=== PATIENT | female | born 1965 | race Caucasian/White ===

== ENCOUNTER → 2023-05-18 11:33 | Outpatient (REF) | payer OTHER, SELFPAY | LOC: WDC 11:33 | PROVIDERS: ATTENDING PHYSICIAN Obstetrics & Gynecology Gynecology; FAMILY PHYSICIAN Nurse Practitioner Primary Care | DX: Z12.31 Encounter for screening mammogram for malignant neoplasm of breast (principal) | CPT/HCPCS: 77063; 77067 ==

== ENCOUNTER → 2024-02-15 06:38 | Outpatient (REF) | payer OTHER, SELFPAY ==
[2024-02-15 07:40] LABS: % Basophils 1.6 % (0-2); % Immature Granulocytes 0.3 % (0-0.5); % Monocytes 8.2 % (1.7-9.3); % Neutrophils 39.9 % (42.2-75.2); Absolute Basophils 0.1 10^3/uL (0-0.2); Absolute Eosinophils 0.1 10^3/uL (0-0.7); Absolute Lymphocytes 1.4 10^3/uL (1.2-3.4); Absolute Monocytes 0.3 10^3/uL (0.1-0.6); Absolute Neutrophils 1.2 10^3/uL (1.4-6.5); Hematocrit 39.1 % (37.0-47.0); Hemoglobin 13.1 g/dL (12.0-16.0); Mean Corp Hgb Conc. 33.5 g/dL (33.0-37.0); Mean Corpuscular Hgb 32.7 pg (27.0-31.0); Mean Corpuscular Volume 97.5 fL (81.0-99.0); Mean Platelet Volume 10.4 fL (7.4-10.4); Nucleated Red Blood Cells % 0 %; Platelet Count 184 10^3/uL (130-400); Red Blood Cell Count 4.01 10^6/uL (4.20-5.40); Red Cell Dist. Width 12.5 % (11.5-14.5)
[2024-02-15 08:42] LABS: Vitamin D, 25-OH*** 44.3 ng/mL (30-80)
[2024-02-15 08:55] LABS: TSH Reflex To Free T4 4.63 uIU/ml (0.47-4.68)
[2024-02-15 09:23] LABS: ALT (SGPT) 28 U/L (0-35); AST (SGOT) 36 U/L (14-36); Albumin 4.6 g/dl (3.5-5.0); Alkaline Phosphatase 44 U/L (38-126); Blood Urea Nitrogen 12 mg/dl (7-17); Calcium 9.7 mg/dl (8.4-10.2); Carbon Dioxide 27 mmol/L (22-30); Chloride 102 mmol/L (98-107); Glucose 86 mg/dl (70-99); HDL Cholesterol 93 mg/dl; LDL Cholesterol, Calculated 102 mg/dl; Potassium 4.5 mmol/L (3.5-5.1); Sodium 140 mmol/L (135-145); Total Bilirubin 0.5 mg/dl (0.2-1.3); Total Cholesterol 207 mg/dl (50-199); Total Protein 6.6 g/dl (6.3-8.2); Triglyceride 60 mg/dl (10-149); Very Low Density Lipoprotein 12 mg/dl (0-30); eGFR > 60.00
[2024-02-15 14:18] LABS: tTG IgA Antibody 2.6 EU/ml (0-19); tTG IgG Antibody 7.4 EU/ml (0-19)
[2024-02-15 23:44] LABS: IgA 56 mg/dl (70-400)
[2024-02-17 21:11] LABS: Endomysial IgA Antibody Titer <1:10 (<1:10)
== END ==
LOC: REG 06:38
PROVIDERS: ATTENDING PHYSICIAN Nurse Practitioner Primary Care
DX: Z00.00 Encounter for general adult medical examination without abnormal findings (principal); M80.00XA Age-related osteoporosis with current pathological fracture, unspecified site, initial encounter for fracture; E55.9 Vitamin D deficiency, unspecified; D72.819 Decreased white blood cell count, unspecified; R10.30 Lower abdominal pain, unspecified
CPT/HCPCS: 36415; 80053; 80061; 82306; 82784; 83516; 84443; 85025; 86231

== ENCOUNTER → 2024-02-16 13:06 | Outpatient (REF) | payer OTHER, SELFPAY | LOC: RCS 13:06 | PROVIDERS: ATTENDING PHYSICIAN Nurse Practitioner Primary Care | DX: R00.1 Bradycardia, unspecified (principal); R07.89 Other chest pain | CPT/HCPCS: 93005 ==

== ENCOUNTER → 2024-02-20 14:17 | Outpatient (REF) | payer OTHER, SELFPAY | LOC: HWRAD 14:17 | PROVIDERS: ATTENDING PHYSICIAN Nurse Practitioner Primary Care | DX: Z85.820 Personal history of malignant melanoma of skin (principal); R10.30 Lower abdominal pain, unspecified; R14.0 Abdominal distension (gaseous) | CPT/HCPCS: 74177; Q9967 ==

== ENCOUNTER → 2024-02-23 13:47 | Outpatient (REF) | payer OTHER, SELFPAY ==
[2024-02-23 14:41] LABS: Urine Albumin Negative (Neg - Trace); Urine Bilirubin Negative (Negative); Urine Character Clear (Clear); Urine Color Yellow; Urine Glucose Negative (Negative); Urine Ketone Negative (Negative); Urine Leukocyte Trace (Negative); Urine Nitrite Negative (Negative); Urine Occult Blood Negative (Negative); Urine Urobilinogen Negative (Neg - 1+)
[2024-02-23 15:18] LABS: Urine Red Blood Cell 0-2 /HPF (0-2); Urine White Cell 0-2 /HPF (0-5)
[2024-02-23 15:54] LABS: Urine Protein 11 mg/dl
[2024-02-23 17:14] LABS: Protein/creatinine Ratio 0.7
== END ==
LOC: REG 13:47
PROVIDERS: ATTENDING PHYSICIAN Nurse Practitioner Primary Care
DX: D80.2 Selective deficiency of immunoglobulin A [IgA] (principal)
CPT/HCPCS: 36415; 81003; 81015; 82570; 82784; 83521; 84155; 84156; 84165; 86334

== ENCOUNTER → 2024-02-29 12:29 | Outpatient (REF) | payer OTHER, SELFPAY | LOC: RCS 12:29 | PROVIDERS: ATTENDING PHYSICIAN Nurse Practitioner Primary Care | DX: I34.0 Nonrheumatic mitral (valve) insufficiency (principal); R00.1 Bradycardia, unspecified; R07.89 Other chest pain | CPT/HCPCS: 93017; 93320; 93325; 93350 ==

== ENCOUNTER → 2024-03-16 10:13 | Outpatient (REF) | payer OTHER, SELFPAY | LOC: RAD 10:13 | PROVIDERS: ATTENDING PHYSICIAN Nurse Practitioner Primary Care | DX: M80.00XA Age-related osteoporosis with current pathological fracture, unspecified site, initial encounter for fracture (principal) | CPT/HCPCS: 77080 ==

== ENCOUNTER → 2024-03-26 09:53 | Outpatient (REF) | payer OTHER, SELFPAY | LOC: RAD 09:53 | PROVIDERS: ATTENDING PHYSICIAN Nurse Practitioner Primary Care; REFERRING PHYSICIAN Obstetrics & Gynecology Gynecology | DX: R04.0 Epistaxis (principal) | CPT/HCPCS: 76830; 76856 ==

== ENCOUNTER 2024-05-30 14:31 | Emergency (ER) | payer OTHER, SELFPAY ==
[2024-05-30 14:41] VITALS: BP 128/85
--- NOTE | 2024-05-30 14:42 | ED.MUSCINJ ---
HPI-Injury
<Collin Dior PA-C - Last Filed: 05/30/24 14:42>
General
Chief Complaint: Musculo-Skeletal Complaint
Time Seen by Provider: 05/30/24 15:13
<Germain May DO - Last Filed: 05/30/24 15:28>
History of Present Illness-Injury
Initial Injury comments:
TIME OF INITIAL ENCOUNTER:
HPI: 58-year-old female presents with left ankle and foot pain starting today. She stood up to walk out of her foot was asleep and she twisted her foot and felt a crack. She notes pain to the lateral foot and ankle. She has been unable to walk
since then. X-rays left ankle and foot ordered from triage.
EXAM:
GENERAL: Well appearing in no distress
HEENT: Moist oral mucosa
NEUROLOGIC: Excellent strength all extremities, no obvious coordination deficits
PSYCHIATRIC: Appropriate mental status, normal insight and judgement
EXTREMITIES: There is no pain with passive rotation at the hip, there is no tenderness at the knee, there is some mild soft tissue swelling over the lateral malleolus of the left ankle and there is also soft tissue swelling over the lateral aspect
of the left hindfoot, there is no significant tenderness at the base of the fifth metatarsal, other metatarsals are nontender
SKIN: No rash, no lesions
NUMBER AND COMPLEXITY OF PROBLEMS ADDRESSED AT THE ENCOUNTER
� Chronic conditions affecting care: Asthma, basal cell carcinoma
� Acute Exacerbation and/or Progression of Chronic Illness: This is an acute
� Differential Diagnosis includes: Foot/ankle fracture/sprain
AMOUNT AND/OR COMPLEXITY OF DATA TO BE REVIEWED AND ANALYZED
� I performed an independent evaluation of and my interpretation is:
EKG:
CT:
X-rays: I reviewed x-rays personally and agree with radiologist interpretation there is a questionable abnormality at the base of the fifth metatarsal however this does not fit clinically
Laboratory Studies:
Other:
� Review of other/old records: I reviewed records, the patient had a stress echo in February 2024
� Clinical information was obtained by an independent historian: I spoke to at bedside
� Prescriptions/Medications Considered but not given:
� Further testing considered but not performed:
RISK OF COMPLICATIONS AND/OR MORBIDITY OR MORTALITY OF PATIENT MANAGEMENT
� Social determinants of health affecting care: Lives at home
� Discussion with other providers:
� Escalation of care including admission/observation vs risk of discharge considered: The patient has already taken NSAIDs earlier today, will place in a boot and try crutches as she still does not feel to be able to weight-bear.
Suspect more of a foot sprain over base of the fifth metatarsal fracture however toward the fracture is still a possibility. Regardless, we will put her in a boot. She is known to Dr. Law.
ANY OTHER UPDATES:
ED Provider Triage
<Collin Dior PA-C - Last Filed: 05/30/24 14:42>
-
Patient seen by provider in Triage?: Seen in Triage
Attestation: A medical screening examination has been initiated by a qualified medical provider. Based on the assessment performed at this time, it has been determined that an emergent medical condition may exist and the patient has been informed
that further medical evaluation and possible additional diagnostic testing may be needed.
HPI: 58-year-old female presents with left ankle and foot pain starting today. She stood up to walk out of her foot was asleep and she twisted her foot and felt a crack. She notes pain to the lateral foot and ankle. She has been unable to walk
since then. X-rays left ankle and foot ordered
GENERAL: Alert , in no apparent distress
EYE: No visual abnormalities.
NECK: Trachea midline
ENT: No visible abnormalities.
LUNGS: No acute respiratory distress
NEUROLOGICAL: Alert and oriented
SKIN: Skin intact. No visible changes.
MUSCULOSKELETAL: Moving extremities normally
PSYCH: Normal and appropriate interaction.
This is a medical evaluation conducted in person to initiate diagnostic evaluation and provide initial therapeutics. Please see further documentation by the treating clinician.
<Germain May DO - Last Filed: 05/30/24 15:28>
-
Attestation: A medical screening examination has been initiated by a qualified medical provider. Based on the assessment performed at this time, it has been determined that an emergent medical condition may exist and the patient has been informed
that further medical evaluation and possible additional diagnostic testing may be needed.
HPI: 58-year-old female presents with left ankle and foot pain starting today. She stood up to walk out of her foot was asleep and she twisted her foot and felt a crack. She notes pain to the lateral foot and ankle. She has been unable to walk
since then. X-rays left ankle and foot ordered
GENERAL: Alert , in no apparent distress
EYE: No visual abnormalities.
NECK: Trachea midline
ENT: No visible abnormalities.
LUNGS: No acute respiratory distress
NEUROLOGICAL: Alert and oriented
SKIN: Skin intact. No visible changes.
MUSCULOSKELETAL: Moving extremities normally
PSYCH: Normal and appropriate interaction.
This is a medical evaluation conducted in person to initiate diagnostic evaluation and provide initial therapeutics. Please see further documentation by the treating clinician.
Past History
<Collin Dior PA-C - Last Filed: 05/30/24 14:42>
Past History
ED Past Medical History: None
ED Past Surgical History: None
Social History
Tobacco: Non-smoker
Personal:
Living: with family
Phy Exam
<Germain May DO - Last Filed: 05/30/24 15:28>
Physical Exam
Physical Exam:
See HPI
Injury Course
<Collin Dior PA-C - Last Filed: 05/30/24 14:42>
Orders/Labs/Results
Orders:
Orders
05/30/24 14:40
CR Ankle - Left Min 3 Views Urgent
Comment:
Reason For Exam: pain
CR Foot - Left Min 3 Views Urgent
Comment:
Reason For Exam: pain
05/30/24 15:22
Crutches-Treatment ONCE
boot [Ortho Boot Left- Treatment] ONCE
Short or tall?: Short
<Germain May, DO - Last Filed: 05/30/24 15:28>
Orders/Labs/Results
Orders:
Orders
05/30/24 14:40
CR Ankle - Left Min 3 Views Urgent
Comment:
Reason For Exam: pain
CR Foot - Left Min 3 Views Urgent
Comment:
Reason For Exam: pain
05/30/24 15:22
Crutches-Treatment ONCE
boot [Ortho Boot Left- Treatment] ONCE
Short or tall?: Short
<Germain May, DO - Last Filed: 05/30/24 15:28>
*Critical Care Note
Total Time (30-74mins, 75-104mins- exclusive of procedures): Not Applicable
ED Attending Note
<Collin Dior PA-C - Last Filed: 05/30/24 14:42>
-
Portions of this chart may have been created with voice recognition software.� Occasional wrong word or��sound alike� substitutions may have occurred due to the inherent limitations of voice recognition software.
Discharge Plan
Departure
Patient Disposition: Home (Routine Discharge)
Date of Disposition: 05/30/24
Time of Disposition: 15:24
Patient with high blood pressure during this ER visit?: Yes
Discharge Problem:
Foot fracture, left
Instructions: Foot Fracture
Prescriptions:
No Action
calcium carbonate-vitamin D3 [Calcium 600 + D(3)] 1 EACH tablet
1 ea PO BID
ibuprofen [Advil Liqui-Gel] 200 MG capsule
400 mg PO Q6H PRN (Reason: pain)
Referrals:
Jerry Law MD [Active] - Follow up in 2-3 days
Activity Restrictions/Additional Instructions:
The radiologist does question a fracture at the base of the fifth metatarsal however you did not seem to have any significant pain at that location. Regardless, the treatment would still be a boot and crutches if needed. Follow-up with
[facility] as well. I recommend 3-4 [id number] ibuprofen (Motrin) every 8 hours with food for a few days. Return here if worse.
Interventions
Interventions:
*Risk Screen - Suicide Last Done: 05/30/24 14:41
*General Assessment Last Done: 05/30/24 14:41
*Neglect/Abuse Screening Last Done: 05/30/24 15:13
ED- Fall Risk Assessment Last Done: 05/30/24 15:13
*ED COVID-19 Vaccine History Last Done: 05/30/24 14:41
ED-Musculoskeletal Assessment Last Done: 05/30/24 15:13
Discharge Date and Time
Print Language: BULGARIAN
[2024-05-30 15:13] VITALS: BMI 19.4
== END 2024-05-30 16:06 | disposition home or self-care (01) ==
LOC: EMR 14:31
PROVIDERS: EMERGENCY PHYSICIAN Emergency Medicine; FAMILY PHYSICIAN Internal Medicine Geriatric Medicine
DX: S92.355A Nondisplaced fracture of fifth metatarsal bone, left foot, initial encounter for closed fracture (principal); X50.1XXA Overexertion from prolonged static or awkward postures, initial encounter; R03.0 Elevated blood-pressure reading, without diagnosis of hypertension
CPT/HCPCS: 99283; 73610; 73630

== ENCOUNTER → 2024-06-05 17:04 | Outpatient (REF) | payer OTHER, SELFPAY | LOC: RAD 17:04 | PROVIDERS: ATTENDING PHYSICIAN Nurse Practitioner Primary Care | DX: J40 Bronchitis, not specified as acute or chronic (principal) | CPT/HCPCS: 71046 ==

== ENCOUNTER → 2024-06-16 10:50 | Outpatient (REF) | payer OTHER, SELFPAY | LOC: WDC 10:50 | PROVIDERS: ATTENDING PHYSICIAN Obstetrics & Gynecology Gynecology; FAMILY PHYSICIAN Nurse Practitioner Primary Care | DX: Z12.31 Encounter for screening mammogram for malignant neoplasm of breast (principal); Z12.39 Encounter for other screening for malignant neoplasm of breast | CPT/HCPCS: 77063; 77067 ==

== ENCOUNTER → 2024-08-06 14:41 | Outpatient (REF) | payer OTHER, SELFPAY | LOC: HWRAD 14:41 | PROVIDERS: ATTENDING PHYSICIAN Internal Medicine Cardiovascular Disease; FAMILY PHYSICIAN Nurse Practitioner Primary Care | DX: I77.810 Thoracic aortic ectasia (principal) | CPT/HCPCS: 71250 ==

== ENCOUNTER → 2025-02-15 08:23 | Outpatient (REF) | payer OTHER, SELFPAY ==
[2025-02-15 10:07] LABS: Hematocrit 39.6 % (37.0-47.0); Hemoglobin 13.5 g/dL (12.0-16.0); Mean Corp Hgb Conc. 34.1 g/dL (33.0-37.0); Mean Corpuscular Volume 99.0 fL (81.0-99.0); Nucleated Red Blood Cells % 0 %; Platelet Count 188 10^3/uL (130-400); Red Cell Dist. Width 12.6 % (11.5-14.5)
[2025-02-15 11:00] LABS: ALT (SGPT) 25 U/L (0-35); AST (SGOT) 31 U/L (14-36); Albumin 4.5 g/dl (3.5-5.0); Alkaline Phosphatase 48 U/L (38-126); Blood Urea Nitrogen 14 mg/dl (7-17); Calcium 9.3 mg/dl (8.4-10.2); Carbon Dioxide 30 mmol/L (22-30); Chloride 101 mmol/L (98-107); Glucose 81 mg/dl (70-99); HDL Cholesterol 93 mg/dl; LDL Cholesterol, Calculated 96 mg/dl; Potassium 4.5 mmol/L (3.5-5.1); Sodium 135 mmol/L (135-145); Total Protein 6.8 g/dl (6.3-8.2); Very Low Density Lipoprotein 14 mg/dl (0-30); Vitamin D, 25-OH*** 48.2 ng/mL (30-80); eGFR > 60.00
== END ==
LOC: REG 08:23
PROVIDERS: ATTENDING PHYSICIAN Nurse Practitioner Primary Care
DX: Z00.00 Encounter for general adult medical examination without abnormal findings (principal); M80.00XA Age-related osteoporosis with current pathological fracture, unspecified site, initial encounter for fracture
CPT/HCPCS: 36415; 80053; 80061; 82306; 84443; 85025